=== PATIENT | female | born 1965 | race American Indian/Alaskan Native ===

== ENCOUNTER 2017-10-28 16:30 | Emergency (ER) | payer SELFPAY ==
[2017-10-28] MEDS ORDERED: TYLENOL ONE (16:39)
[2017-10-28 16:42] VITALS: BP 112/77
[2017-10-28] MEDS ORDERED: TYLENOL PO ONE (16:43)
== END 2017-10-29 06:59 | disposition left against medical advice (07) ==
LOC: ED 16:30
DX: Z53.21 Procedure and treatment not carried out due to patient leaving prior to being seen by health care provider (principal)
CPT/HCPCS: 87400

== ENCOUNTER 2020-08-08 19:54 | Emergency (ER) | payer BC ==
--- NOTE | 2020-08-08 20:08 | Emergency Department Report ---
Blank Doc - Documentation Documentation: 55-year-old female that presents with CP and SOB. This initial assessment/diagnostic orders/clinical plan/treatment(s) is/are subject to change based on patient's health status, clinical progression and re- assessment by fellow clinical providers in the ED. Further treatment and workup at subsequent clinical providers discretion. Patient/guardians urged not to elope from the ED as their condition may be serious if not clinically assessed and managed. Initial orders include: 1- Patient sent to MAIN ED for further evaluation and treatment 2- cardiac workup
--- NOTE | 2020-08-08 23:02 | Emergency Department Report ---
ED Chest Pain HPI - General Chief Complaint: Chest Pain Stated Complaint: CHEST PAIN, SHORT OF BREATH Time Seen by Provider: 08/08/20 20:07 Source: patient Mode of arrival: Ambulatory Limitations: No Limitations - History of Present Illness Initial Comments: This is a 55-year-old female who presents to the emergency department with complaint of chest pain and shortness of breath that started at about 3 AM this morning. She has midsternal to left-sided sharp chest pains with some radiation to the left arm. The patient says that she gets a feeling like something is trying to make her cough but she denies any sustained coughing. She denies any fever, lower extremity swelling, abdominal pain, back pain, nausea, vomiting or diaphoresis. Currently the pain is 4 out of 10 in intensity. No known aggravating or alleviating factors. She denies any past medical history. She denies any tobacco or illicit drug use. No family history of early heart attack or cardiac disease. No recent travel or sick contacts at home. She has not taken anything for symptoms prior to presentation today. Her primary care physician is a Dr. Schwartz. - Related Data Allergies Allergy/AdvReac Type Severity Reaction Status Date / Time aspirin Allergy Unknown Verified 10/28/17 16:40 Penicillins Allergy Unknown Verified 10/28/17 16:40 Heart Score - HEART Score History: Slightly suspicious EKG: Normal Age: 45-65 Risk factors: 1-2 risk factors Troponin: < normal limit HEART Score: 2 - Critical Actions Critical Actions: 0-3 pts:0.9-1.7%risk of adverse cardiac event.Candidate for discharge ED Review of Systems ROS: Stated complaint: CHEST PAIN, SHORT OF BREATH Other details as noted in HPI Comment: All other systems reviewed and negative Constitutional: denies: chills, fever Eyes: denies: eye pain, vision change ENT: denies: ear pain, throat pain Respiratory: cough, shortness of breath Cardiovascular: chest pain. denies: edema Gastrointestinal: denies: abdominal pain, vomiting Genitourinary: denies: dysuria, discharge Musculoskeletal: denies: back pain, arthralgia Skin: denies: rash, lesions Neurological: denies: headache, weakness ED Past Medical Hx - Surgical History Additional Surgical History: hemorrhoidectomy, nasal surgery - Social History Smoking Status: Never Smoker Substance Use Type: Alcohol ED Physical Exam - General Limitations: No Limitations - Other Other exam information: GENERAL: The patient is well-developed well-nourished. HENT: Normocephalic. Atraumatic. Patient has moist mucous membranes. EYES: Extraocular motions are intact. NECK: Supple. Trachea is midline. CHEST/LUNGS: Clear to auscultation. There is no respiratory distress noted. HEART/CARDIOVASCULAR: Regular. There is no tachycardia. There is no murmur. ABDOMEN: Abdomen is soft, nontender. Patient has normal bowel sounds. SKIN: Skin is warm and dry. NEURO: The patient is awake, alert, and oriented. The patient is cooperative. The patient has no focal neurologic deficits. Normal speech. MUSCULOSKELETAL: There is no tenderness or deformity. ED Course Vital Signs 08/08/20 08/08/20 08/08/20 20:10 22:46 23:00 Temperature 98.4 F Pulse Rate 89 65 Respiratory 18 15 16 Rate Blood Pressure 129/89 137/87 O2 Sat by Pulse 98 99 Oximetry 08/08/20 08/09/20 08/09/20 23:30 00:00 00:30 Temperature Pulse Rate 66 66 72 Respiratory 12 14 17 Rate Blood Pressure 143/94 127/94 152/96 O2 Sat by Pulse 99 97 99 Oximetry 08/09/20 08/09/20 01:00 01:30 Temperature Pulse Rate 83 66 Respiratory 16 28 H Rate Blood Pressure 157/104 137/89 O2 Sat by Pulse 98 97 Oximetry - Reevaluation(s) Reevaluation #1: 08/09/20 03:14 Lab Results 08/09/20 08/09/20 08/09/20 Range/Units 00:55 00:55 00:55 WBC 6.2 (4.5-11.0) K/mm3 RBC 4.62 (3.65-5.03) M/mm3 Hgb 12.7 (10.1-14.3) gm/dl Hct 39.3 (30.3-42.9) % MCV 85 (79-97) fl MCH 28 (28-32) pg MCHC 33 (30-34) % RDW 14.0 (13.2-15.2) % Plt Count 171 (140-440) K/mm3 Lymph % (Auto) 39.8 H (13.4-35.0) % [place] % (Auto) 8.5 H (0.0-7.3) % Eos % (Auto) 3.7 (0.0-4.3) % Baso % (Auto) 0.4 (0.0-1.8) % Lymph # (Auto) 2.5 (1.2-5.4) K/mm3 [place] # (Auto) 0.5 (0.0-0.8) K/mm3 Eos # (Auto) 0.2 (0.0-0.4) K/mm3 Baso # (Auto) 0.0 (0.0-0.1) K/mm3 Seg Neutrophils % 47.6 (40.0-70.0) % Seg Neutrophils # 3.0 (1.8-7.7) K/mm3 PT 12.5 (12.2-14.9) Sec. INR 0.92 (0.87-1.13) APTT 28.9 (24.2-36.6) Sec. Sodium 140 (137-145) mmol/L Potassium 4.1 (3.6-5.0) mmol/L Chloride 99.7 (98-107) mmol/L Carbon Dioxide 26 (22-30) mmol/L Anion Gap 18 mmol/L BUN 8 (7-17) mg/dL Creatinine 0.6 (0.6-1.2) mg/dL Estimated GFR > 60 ml/min BUN/Creatinine Ratio 13 % Glucose 90 (65-100) mg/dL Calcium 9.6 (8.4-10.2) mg/dL Magnesium 2.00 (1.7-2.3) mg/dL Total Bilirubin 0.40 (0.1-1.2) mg/dL AST 18 (5-40) units/L ALT 18 (7-56) units/L Alkaline Phosphatase 67 (35-129) units/L Troponin T < 0.010 (0.00-0.029) ng/mL Total Protein 7.2 (6.3-8.2) g/dL Albumin 4.3 (3.9-5) g/dL Albumin/Globulin Ratio 1.5 % 08/09/20 Range/Units 00:55 WBC (4.5-11.0) K/mm3 RBC (3.65-5.03) M/mm3 Hgb (10.1-14.3) gm/dl Hct (30.3-42.9) % MCV (79-97) fl MCH (28-32) pg MCHC (30-34) % RDW (13.2-15.2) % Plt Count (140-440) K/mm3 Lymph % (Auto) (13.4-35.0) % [place] % (Auto) (0.0-7.3) % Eos % (Auto) (0.0-4.3) % Baso % (Auto) (0.0-1.8) % Lymph # (Auto) (1.2-5.4) K/mm3 [place] # (Auto) (0.0-0.8) K/mm3 Eos # (Auto) (0.0-0.4) K/mm3 Baso # (Auto) (0.0-0.1) K/mm3 Seg Neutrophils % (40.0-70.0) % Seg Neutrophils # (1.8-7.7) K/mm3 PT (12.2-14.9) Sec. INR (0.87-1.13) APTT (24.2-36.6) Sec. Sodium (137-145) mmol/L Potassium (3.6-5.0) mmol/L Chloride (98-107) mmol/L Carbon Dioxide (22-30) mmol/L Anion Gap mmol/L BUN (7-17) mg/dL Creatinine (0.6-1.2) mg/dL Estimated GFR ml/min BUN/Creatinine Ratio % Glucose (65-100) mg/dL Calcium (8.4-10.2) mg/dL Magnesium (1.7-2.3) mg/dL Total Bilirubin (0.1-1.2) mg/dL AST (5-40) units/L ALT (7-56) units/L Alkaline Phosphatase (35-129) units/L Troponin T < 0.010 (0.00-0.029) ng/mL Total Protein (6.3-8.2) g/dL Albumin (3.9-5) g/dL Albumin/Globulin Ratio % Reevaluation #2: 08/09/20 03:14 Vital Signs 08/08/20 08/08/20 08/08/20 20:10 22:46 23:00 Temperature 98.4 F Pulse Rate 89 65 Respiratory 18 15 16 Rate Blood Pressure 129/89 137/87 O2 Sat by Pulse 98 99 Oximetry 08/08/20 08/09/20 08/09/20 23:30 00:00 00:30 Temperature Pulse Rate 66 66 72 Respiratory 12 14 17 Rate Blood Pressure 143/94 127/94 152/96 O2 Sat by Pulse 99 97 99 Oximetry 08/09/20 08/09/20 01:00 01:30 Temperature Pulse Rate 83 66 Respiratory 16 28 H Rate Blood Pressure 157/104 137/89 O2 Sat by Pulse 98 97 Oximetry JANES score - Janes Score Age > 65: (0) No Aspirin use within the Past 7 Days: (0) No 3 or more CAD Risk Factors: (0) No 2 or more Angina events in past 24 hrs: (1) Yes Known CAD with more than 50% Stenosis: (0) No Elevated Cardiac Markers: (0) No ST Deviation Greater than 0.5mm: (0) No JANES Score: 1 ED Medical Decision Making - Lab Data Result diagrams: 08/09/20 00:55 08/09/20 00:55 - EKG Data -: EKG Interpreted by Me EKG shows normal: sinus rhythm, axis, intervals, QRS complexes (LVH), ST-T waves Rate: normal - EKG Data When compared to previous EKG there are: previous EKG unavailable Interpretation: LVH - Radiology Data Radiology results: image reviewed interpreted by me: Chest x-ray does not show any acute process. There are no pleural effusions, ob vious pneumonia and there is no pneumothorax. No significant cardiomegaly. - Medical Decision Making This patient presents to the emergency department with a complaint of some left- sided chest pain that started earlier in the morning. On examination heart and lung sounds are normal to auscultation. The patient does not appear in any respiratory or acute distress. EKG does not have any morphology consistent with ST elevation myocardial infarction or any dysrhythmia. Chest x-ray does not show any pneumonia, pleural effusions, pneumothorax, focal consolidation, or any other acute process. Patient's labs have been mostly unremarkable including CBC, metabolic panel, and negative troponins x2. The patient was reevaluated multiple times over multiple hours and the patient is currently asymptomatic prior to discharge. She has a low heart and JANES score. She is low on the Wells score criteria and negative on the pulmonary embolism rule out criteria. The patient's contact information has been sent over to [facility] [place], and someone from their office should be contacting you shortly for close outpatient follow- up as per our [facility] low risk chest pain protocol. She has been instructed to return to the emergency department with any return or worsening of her symptoms, or with any acute distress. Critical Care Time: No Critical care attestation.: If time is entered above; I have spent that time in minutes in the direct care of this critically ill patient, excluding procedure time. ED Disposition Clinical Impression: Chest pain Qualifiers: Chest pain type: unspecified Qualified Code(s): R07.9 - Chest pain, unspecified Disposition: TO HOME OR SELFCARE Is pt being admited?: No Condition: Stable Instructions: Chest Pain (ED) Additional Instructions: Please follow-up with a primary care physician in the next few days. I am sending your contact information over to [facility], and someone should be contacting you shortly for close outpatient follow-up. I will also give you a referral for one of their loom checker, Dr. Stratton, for you to make an appointment if they do not contact you in a reasonable amount of time. Return to the emergency department with any worsening of your symptoms, new or concerning symptoms not addressed during this current emergency department visit, or with any acute distress. Referrals: PRIMARY MD FRANSICO [Primary Care Provider] - 2-3 Days VICENTE STRATTON MD [Staff Physician] - 2-3 Days Forms: Work/School Release Form(ED) Time of Disposition: 02:33
--- NOTE | 2020-08-08 23:52 | XRay Report ---
CHEST 2 VIEWS INDICATION / CLINICAL INFORMATION: Chest Pain. COMPARISON: None available. FINDINGS: SUPPORT DEVICES: None. HEART / MEDIASTINUM: The heart size and pulmonary vasculature are normal. The aorta is normal in sofi osbaldo. LUNGS / PLEURA: No significant pulmonary or pleural abnormality. No pneumothorax. ADDITIONAL FINDINGS: There is mild lower thoracic levoscoliosis. IMPRESSION: No acute findings. Signer Name: Kamaljit Zimmerman MD Signed: 08/08/2020 11:47 PM Workstation Name: [id number]
[2020-08-09 01:52] LABS: Basophils % (Auto) 0.4 % (0.0-1.8); Eosinophils # (Auto) 0.2 K/mm3 (0.0-0.4); Eosinophils % (Auto) 3.7 % (0.0-4.3); Hematocrit 39.3 % (30.3-42.9); Hemoglobin 12.7 gm/dl (10.1-14.3); Lymphocytes # (Auto) 2.5 K/mm3 (1.2-5.4); Lymphocytes % (Auto) 39.8 % (13.4-35.0); Mean Corpuscular HGB Conc 33 % (30-34); Mean Corpuscular Volume 85 fl (79-97); Monocytes # (Auto) 0.5 K/mm3 (0.0-0.8); Monocytes % (Auto) 8.5 % (0.0-7.3); Platelet Count 171 K/mm3 (140-440); Red Blood Count 4.62 M/mm3 (3.65-5.03)
[2020-08-09 02:07] LABS: Alanine Aminotransferase 18 units/L (7-56); Albumin 4.3 g/dL (3.9-5); Blood Urea Nitrogen 8 mg/dL (7-17); Calcium 9.6 mg/dL (8.4-10.2); Hemolysis Index 1
[2020-08-09 02:09] LABS: BUN/Creatinine Ratio 13
[2020-08-09 02:17] LABS: INR 0.92 (0.87-1.13)
[2020-08-09 02:18] LABS: Partial Thromboplastin Time 28.9 Sec. (24.2-36.6)
[2020-08-09 02:43] VITALS: BP 137/89
[2020-08-10 08:55] LABS: Alanine Aminotransferase 18 units/L (7-56); Albumin 4.4 g/dL (3.9-5); BUN/Creatinine Ratio 15; Blood Urea Nitrogen 9 mg/dL (7-17); Calcium 9.6 mg/dL (8.4-10.2)
== END 2020-08-09 04:05 | disposition home or self-care (01) ==
LOC: ED 19:54
DX: R07.9 Chest pain, unspecified (principal); Z79.899 Other long term (current) drug therapy; Z88.0 Allergy status to penicillin; Z88.6 Allergy status to analgesic agent; Z98.890 Other specified postprocedural states
CPT/HCPCS: 36415; 71046; 80053; 83735; 83880; 84484; 85025; 85610; 85730; 93005

== ENCOUNTER → 2020-08-08 | Emergency (ER) | payer BC | LOC: ED 10:43 | DX: R07.9 Chest pain, unspecified (principal); R06.02 Shortness of breath; R10.13 Epigastric pain | CPT/HCPCS: 93005; 99281 ==